=== PATIENT | female | born 1985 | race Caucasian/White ===

== ENCOUNTER 2016-08-27 09:16 | Day surgery (SDC) | payer OTHER ==
[2016-08-24 13:27] LABS: HEMATOCRIT 40.1 % (36.0-47.0); HEMOGLOBIN 13.4 g/dL (12.0-15.5); HGB HCT DIFFERENCE 0.1; MEAN CORPUSCULAR HEMOGLOBIN 28.9 pg (27.0-33.4); MEAN CORPUSCULAR HGB CONC 33.4 g/dL (32.0-36.0); MEAN CORPUSCULAR VOLUME 87 fl (80-97); RED BLOOD COUNT 4.63 10^6/uL (3.72-5.28); RED CELL DISTRIBUTION WIDTH 14.1 % (11.5-14.0); WHITE BLOOD COUNT 6.3 10^3/uL (4.0-10.5)
[2016-08-24 13:48] LABS: ALANINE AMINOTRANSFERASE 18 U/L (9-52); ALBUMIN 4.1 g/dL (3.5-5.0); ALKALINE PHOSPHATASE 54 U/L (38-126); ANION GAP 10 (5-19); ASPARTATE AMINO TRANSFERASE 17 U/L (14-36); BILIRUBIN,DIRECT 0.3 mg/dL (0.0-0.4); BILIRUBIN,TOTAL 0.5 mg/dL (0.2-1.3); BLOOD UREA NITROGEN 12 mg/dL (7-20); CALCIUM 9.5 mg/dL (8.4-10.2); CARBON DIOXIDE 25 mmol/L (22-30); CHLORIDE 105 mmol/L (98-107); GLUCOSE 45 mg/dL (75-110); POTASSIUM 4.2 mmol/L (3.6-5.0); TOTAL PROTEIN 7.5 g/dL (6.3-8.2)
[~2016-08-27 09:16] MED LIST: BUPIVACAINE HCL 0.25 % INJ/PF (2.5 MG/1 ML) 30 ML VIAL ONE; CEFAZOLIN 2 GM/D5W RTU 2 GM/50 ML RTUPB IV PRN; LIDOCAINE 0.5% INJ-PF (5 MG/ML) 50 ML SDV INJ PRN; RINGERS SOLUTION,LACTATED 1,000 ML IV PRN
[2016-08-27] MEDS ORDERED: FENTANYL CITRATE INJ/PF 100 MCG/2 ML AMPUL ONE ×3 (10:50→13:40)
[2016-08-27] MEDS ORDERED: HYDROMORPHONE HCL INJ/PF 2 MG/ML AMPULE ONE (10:50)
[2016-08-27] MEDS ORDERED: ACETAMINOPHEN 100 ML IV ONE (10:51)
[2016-08-27] MEDS ORDERED: PROPOFOL INJ 200 MG/20 ML VIAL IV ONE (10:51)
[2016-08-27] MEDS ORDERED: MIDAZOLAM 2 MG/2 ML INJ ONE (10:51)
[2016-08-27] MEDS ORDERED: DIPHENHYDRAMINE HCL 50 MG/ML VIAL IV PRN (12:39)
[2016-08-27] MEDS ORDERED: MEPERIDINE HCL/PF INJ 25 MG/1 ML DISP.SYRIN IV PRN (12:39)
[2016-08-27] MEDS ORDERED: FENTANYL CITRATE INJ/PF 100 MCG/2 ML AMPUL IV PRN ×3 (12:39)
[2016-08-27] MEDS ORDERED: MORPHINE SULFATE 10 MG/ML INJ IV PRN ×2 (12:39→13:29)
[2016-08-27] MEDS ORDERED: OXYCODONE-ACETAMINOPHEN 5-325 MG TABLET PO PRN (13:29)
[2016-08-27] MEDS ORDERED: ONDANSETRON HCL INJ/PF 4 MG/2 ML SDV IV PRN (13:30)
[2016-08-27] MEDS ORDERED: PROMETHAZINE HCL INJ 25 MG/1 ML VIAL IV PRN (13:31)
[2016-08-27] MEDS ORDERED: OXYCODONE HCL IR 5 MG TABLET PO PRN (13:39)
[2016-08-27] MEDS ORDERED: NORMAL SALINE 1000 ML 1,000 ML IV ONE (13:45)
--- NOTE | 2016-08-27 15:26 | OPERATIVE REPORT E ---
Operative Report NAME: LETHA FALCON : 1985 AGE: 30Y DATE OF SURGERY: 08/27/2016 ROOM: 219 PREOPERATIVE DIAGNOSES: 1. CHRONIC PELVIC PAIN. 2. ENDOMETRIOSIS. 3. MENOMETRORRHAGIA UNRESPONSIVE TO MEDICAL THERAPY. POSTOPERATIVE DIAGNOSES: 1. CHRONIC PELVIC PAIN. 2. ENDOMETRIOSIS. 3. MENOMETRORRHAGIA UNRESPONSIVE TO MEDICAL THERAPY. OPERATION: 1. Robotic total laparoscopic hysterectomy. 2. Bilateral salpingectomy with remnants of the fallopian tubes and bilateral tubal ligation. 3. Cystoscopy. SURGEON: Yanira Jones PLASTIC PARTS FABRICATOR TRIMMER: Christy Chaney MD ANESTHESIA: General. ESTIMATED BLOOD LOSS: 150. INTRAVENOUS FLUIDS: 1700. URINE OUTPUT: 200 clear urine at end of procedure. COMPLICATIONS: None. INDICATIONS: The patient is a 30-year-old G4, P3-0-1-3 with a history of bilateral tubal ligation and chronic pelvis pain with a history of endometriosis on previous diagnostic laparoscopy with soft boggy uterus consistent with adenomyosis based on a previous diagnostic laparoscopy report with menometrorrhagia unresponsive to medical therapy. The patient desired definitive treatment, counseling of robotic hysterectomy included but not limited to bleeding, infection, injury to surrounding organs or tissue and need of transfusion, possible exploratory laparotomy and in case there is bleeding that cannot be identified, visualized or controlled via the laparoscopic robotic procedure or due to many adhesions due to her previous surgical history. The patient understood and consented to procedure and agreed to proceed with operating room. FINDINGS: 1. Soft boggy uterus consistent with adenomyosis. 2. Remnants of the fallopian tube on the right and left tube. 3. Normal ovaries bilaterally. DESCRIPTION OF PROCEDURE: The patient was taken to the operating room and general anesthesia was induced without difficulty. She was placed on the dorsal lithotomy position and sterilely prepped and draped in the usual sterile fashion. Bear hugger was placed to maintain control of core body temperature. Luna catheter was placed on the bladder. Heavy weighted speculum was placed and vaginal tissue, vaginal vault. Single tooth tenaculum was placed on the anterior lip of the cervix. Cervical os was dilated with Hegar dilators. Hegar dilators were used to dilate the cervix. Two [id number]-[id number]-eslms stitches around 3 and 9 o'clock were placed with anchoring stitches prior to placing the V Care manipulator was attached to the uterus with a cervical ring and anchoring it into the stitches on the right and left. Weighted speculum was removed from the vaginal mucosa. A single tooth tenaculum was removed from the anterior lip of the cervix, and then the course of two sutures were placed on all lateral aspects of the cervix used as traction later in the case as needed along with the Vcare, and they were anchored with a horizontal supraumbilical incision that was performed with the scalpel. A Veress needle was placed in the abdominal cavity. Through the Veress needle, carbon dioxide was infused until pneumoperitoneum was obtained. This was of course done after a water drop test was successfully performed. Veress needle was then removed. Supraumbilical incision was then extended a little bit in a 12 mm trocar and sleeves were placed into the abdominal cavity under direct visualization with a laparoscope without any difficulty. Trocar removed and robotic laparoscope was placed in the abdominal cavity. Please see the above findings. The interperitoneum placement was confirmed. Local anesthesia was used at all ports prior to placing the surgiports. Two 8 mm surgiports were placed inferior to the umbilicus and lateral to the rectus abdominis muscle bilaterally. These ports were put in the abdominal cavity under direct visualization away from any major blood vessels. An community assistant port was placed in the right upper quadrant. The ureter on both sides on the right and the left were both visualized and both had excellent peristalsis and were well out of the visual surgical field at all times. At this point, the small fimbriated end of the fallopian tube was grasped on the right side, coagulated and transected along the mesosalpinx all the way to the cornua region. The round ligaments on the right side were cauterized and transected. The utero-ovarian ligament on the right side was cauterized and transected with a round ligament all the way down to the level of the uterus and uterine arteries of course prior to the hysterectomy and it being initiated. Again, the ureter was visualized and it was peristalsing and it was individual doe and away from the surgical process that was being performed. The contralateral side was performed in a similar fashion where the small fimbriated end was grasped all of the way through the mesosalpinx to the cornual region cauterizing and transect. The utero-ovarian cauterized and transected. The round ligament was cauterized and transected all the way down to the level of the uterus and the uterine arteries. Again, the ureter on the left side was visualized and was peristalsing perfectly and was far away from where we were cauterizing and transecting. The vesicouterine peritoneum on the right side was then incised in an elliptical fashion performing the right side of the bladder flap. The bladder was pushed down to the lower uterine segment without any difficulty. The ring was then identified anteriorly and anterior colpotomy was performed. The uterine vasculature was cauterized bilaterally. The colpotomy was extended completely circumscribing the cervix and the vaginal cuff. The uterus, both fallopian tubes and the cervix were delivered through the vaginal mucosa. The vaginal cuff was closed using running via lock suture 180 days. Attention was then turned to the ureters bilaterally and they were both identified again peristalsis and in a normal fashion and away from the vaginal cuff where we were performing the procedure. The survey of the lateral pelvic sidewalls revealed excellent hemostasis. Also survey of both lateral pelvic sidewalls revealed excellent hemostasis and both ureters were both peristalsing after the hysterectomy procedure that was done and the closure of the vaginal cuff. Fluorescein was injected along the vaginal cuff for prophylactic measures and hemostasis. Attention was then turned below to perform a cystoscopy prior to removing the robotic instrument. The cystoscope was introduced without any difficulty and the scope of the bladder revealed completely normal integrity and anatomy of the bladder. There were no foreign bodies or injury to the bladder and there was the bubble sign visible. There was excellent efflux from both ureteral orifices of strong urine flow efflux identified. There was no methylene blue that was given at this procedure due to back order of methylene blue; however, both yellow urine from both ureters were identified. At this point after confirming the normal findings of the cystoscope, the cystoscope was removed, robot was undocked, the abdomen was desufflated and all trocars were removed. A 12 mm supraumbilical incision was repaired with a UR6 to repair the fascia and the remaining incision was closed with 4-0 Monocryl in a horizontal mattress fashion and in a running fashion for the supraumbilical and the right upper quadrant stitch with a 4-0 Monocryl continuously in a subcuticular fashion. All sponge, needle and instrument counts were noted to be correct x2. The patient did receive preoperative IV antibiotics of Ancef 2 g. Luna bag was noted to contain clear urine at end of procedure. Luna catheter was removed, the vaginal mucous was then inspected to make sure there were no lacerations and there was no bleeding or any lacerations from below. The patient was extubated successfully in the recovery room. The patient tolerated procedure well. Sponge, lap and needle counts were correct x2. The patient was sent to the recovery room in stable condition. The patient is to be discharged later today pending PACU requirements but the plan is to send the patient home with a followup outpatient for postoperative appointment. DICTATING PHYSICIAN: Yanira Jones MD [id number] PHY#: [id number] ID: [id number] JOB#: [id number] ACCT: [id number] cc:Yanira Jones >
[2016-08-27] MEDS ORDERED: GLYCOPYRROLATE INJ 0.4 MG/2 ML VIAL ONE (15:51)
[2016-08-27] MEDS ORDERED: NEOSTIGMINE METHYLSULFATE 10 MG/10 ML VIAL ONE (15:51)
[2016-08-27] MEDS ORDERED: SUCCINYLCHOLINE CHLORIDE INJ 200 MG/10 ML VIAL ONE (15:51)
[2016-08-27] MEDS ORDERED: ROCURONIUM BROMIDE INJ 50 MG/5 ML VIAL IV ONE (15:51)
[2016-08-27] MEDS ORDERED: DEXAMETHASONE SOD PHOSPHATE INJ 4 MG/1 ML VIAL ONE (15:51)
[2016-08-27] MEDS ORDERED: ONDANSETRON HCL INJ/PF 4 MG/2 ML SDV ONE (15:51)
[2016-08-27 20:07] VITALS: BP 108/66
== END 2016-08-27 20:26 | disposition home or self-care (01) ==
LOC: OROUT 09:16 → 2S 14:31 → OROUT 20:26
PROVIDERS: ATTEND Obstetrics & Gynecology
PROC: 0UTC4ZZ Resection of Cervix, Percutaneous Endoscopic Approach (ICD-10-PCS; 2016-08-27)
PROC: 0UT74ZZ Resection of Bilateral Fallopian Tubes, Percutaneous Endoscopic Approach (ICD-10-PCS; 2016-08-27)
PROC: 8E0W4CZ Robotic Assisted Procedure of Trunk Region, Percutaneous Endoscopic Approach (ICD-10-PCS; 2016-08-27)
PROC: 0UT94ZZ Resection of Uterus, Percutaneous Endoscopic Approach (ICD-10-PCS; principal; 2016-08-27 11:15)
DX: G89.29 Other chronic pain (principal); R10.2 Pelvic and perineal pain; N80.0 Endometriosis of uterus; N92.1 Excessive and frequent menstruation with irregular cycle
CPT/HCPCS: 58571; S2900; 36415; 80053; 81025; 840; 85027; 86850; 86900; 86901; 88307; J0131; J0330; J0690; J1100; J1170; J2250; J2270; J2405; J2704; J3010; J3490

== ENCOUNTER 2017-01-31 11:30 | Day surgery (SDC) | payer OTHER ==
[2017-01-24 10:51] LABS: ABSOLUTE MONOCYTES (AUTO) 0.5 10^3/uL (0.1-1.4); ABSOLUTE NEUT (AUTO) 2.2 10^3/uL (1.7-8.2); BASOPHILS % (AUTO) 0.3 % (0-2); HEMATOCRIT 40.6 % (36.0-47.0); HEMOGLOBIN 14.2 g/dL (12.0-15.5); LYMPHOCYTES % (AUTO) 40.8 % (13-45); MEAN CORPUSCULAR HEMOGLOBIN 30.2 pg (27.0-33.4); MEAN CORPUSCULAR HGB CONC 34.8 g/dL (32.0-36.0); MEAN CORPUSCULAR VOLUME 87 fl (80-97); MONOCYTES % (AUTO) 11.2 % (3-13); RED BLOOD COUNT 4.69 10^6/uL (3.72-5.28); RED CELL DISTRIBUTION WIDTH 13.2 % (11.5-14.0); SEGMENTED NEUTROPHILS % (AUTO) 46.7 % (42-78); WHITE BLOOD COUNT 4.8 10^3/uL (4.0-10.5)
[2017-01-24 10:55] LABS: APPEARANCE,URINE SLIGHTLY-CLOUDY; BILIRUBIN,URINE NEGATIVE (NEGATIVE); GLUCOSE, URINE NEGATIVE (NEGATIVE); KETONES,URINE NEGATIVE (NEGATIVE); LEUKOCYTE ESTERASE,URINE NEGATIVE (NEGATIVE); NITRITE,URINE NEGATIVE (NEGATIVE); PROTEIN,URINE 30 mg/dL (NEGATIVE)
[2017-01-24 11:12] LABS: ANION GAP 14 (5-19); BLOOD UREA NITROGEN 14 mg/dL (7-20); CALCIUM 9.2 mg/dL (8.4-10.2); CARBON DIOXIDE 25 mmol/L (22-30); CHLORIDE 105 mmol/L (98-107); CREATININE RESULT 0.82 mg/dL (0.52-1.25); GLUCOSE 84 mg/dL (75-110); POTASSIUM 4.1 mmol/L (3.6-5.0); SODIUM 144.2 mmol/L (137-145)
[~2017-01-31 11:30] MED LIST changes: -BUPIVACAINE HCL 0.25 % INJ/PF (2.5 MG/1 ML) 30 ML VIAL ONE; +BUPIVACAINE HCL 0.5 % INJ/PF 30 ML SDV ONE; +LACTATED RINGERS 1000 ML IV PRN; -LIDOCAINE 0.5% INJ-PF (5 MG/ML) 50 ML SDV INJ PRN; -RINGERS SOLUTION,LACTATED 1,000 ML IV PRN
[2017-01-31] MEDS ORDERED: FENTANYL CITRATE INJ/PF 100 MCG/2 ML AMPUL ONE (14:17)
[2017-01-31] MEDS ORDERED: HYDROMORPHONE HCL INJ/PF 2 MG/ML AMPULE ONE (14:17)
[2017-01-31] MEDS ORDERED: PROPOFOL INJ 200 MG/20 ML VIAL IV ONE (14:18)
[2017-01-31] MEDS ORDERED: MIDAZOLAM 2 MG/2 ML INJ ONE (14:18)
[2017-01-31] MEDS ORDERED: ONDANSETRON HCL INJ/PF 4 MG/2 ML SDV ONE (14:52)
[2017-01-31] MEDS ORDERED: DEXAMETHASONE SOD PHOSPHATE INJ 4 MG/1 ML VIAL ONE (14:52)
--- NOTE | 2017-01-31 15:34 | Operative Report ---
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 A thigh tourniquet was applied to the right lower extremity and the right lower extremity was prepped and draped in a normal sterile surgical fashion. Timeout was done identifying the right knee as the correct site. Esmarch was used to examine correct extremity and tourniquet was inflated at 300 mmHg. Marcaine was injected in the 2 anticipated portal sites. 11 blade was used to establish the anterolateral portal and the scope was introduced. Fluid was used to distend the capsule. Under direct visualization we proceeded to establish the anteromedial portal and introduced a probe showing that the patient had central and medial facet grade 4 and grade 3 changes of the patella. Diameter was about a centimeter. Patient had a single small plica and with the 4.0 mm shaver was able to resect the plica and do a chondroplasty of the patella. Pictures were taken of the pre -and and after images. I have did a mild resection of the fat pad for better exposure. Also looked at the medial compartment and lateral compartment showing pristine cartilage of the condyles and plateau as well as an intact menisci. Looking at the notch patient had intact ACL PCL. Once I was satisfied with my chondroplasty and medial plica excision and pictures confirming the resection and can clean up I then proceeded to remove the fluid from the knee and closed the 2 portal sites with 3-0 nylon. I injected the remaining Marcaine into the knee for pain control. I then applied Xeroform 4 x 4 dressing and then overwrapped with soft roll and Carlitos bandage. Tourniquet was let down at 28 minutes and drapes were removed. Patient was then extubated and sent to PACU in stable condition
[2017-01-31] MEDS ORDERED: OXYCODONE-ACETAMINOPHEN 5-325 MG TABLET PO PRN ×4 (15:36→16:07)
--- NOTE | 2017-01-31 15:36 | PDOC DISCHARGE SUMMARY ---
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 Patient instructed to keep dressing dry clean and intact for 4 days and then allowed to remove. At that point patient can shower and apply Band-Aids as needed. Patient can weight-bear as tolerated and do range of motion exercises as tolerated. Crutches for support and safety. Can wean crutches once stable on his feet. Patient instructed to call the office if patient develops fevers chills redness and drainage from the surgical sites. Prescriptions: Oxycodone HCl/Acetaminophen [Percocet 5-325 mg Tablet] 1 - 2 tab PO ASDIR PRN # 40 tablet PRN Reason: Referrals: KYLE PYLE PA [Primary Care Provider] - Discharge Diet: As Tolerated Respiratory Treatments at Home: Deep Breathing/Coughing Discharge Activity: No Driving, Keep Legs Elevated, No Lifting/Push/Pulling, Slowly Increase Activity Home Care Assistance: None Needed Adaptive Devices on Discharge: Axillary Crutches Report the Following to Your Physician Immediately: Shortness of Breath, Vomiting, Increase in Pain, Fever over 101 Degrees, Unusual Bleeding, Redness, Swelling, Warmth, Increased Soreness, Drainage-Yellow, Drainage-Fernandez, Drainage- Green, Drainage-Foul Smelling
[2017-01-31] MEDS ORDERED: DIPHENHYDRAMINE HCL 50 MG/ML VIAL IV PRN (16:07)
[2017-01-31] MEDS ORDERED: FENTANYL CITRATE INJ/PF 100 MCG/2 ML AMPUL IV PRN ×3 (16:07)
[2017-01-31] MEDS ORDERED: PROMETHAZINE HCL INJ 25 MG/1 ML VIAL IV PRN ×2 (16:07)
[2017-01-31] MEDS ORDERED: MEPERIDINE HCL/PF INJ 25 MG/1 ML DISP.SYRIN IV PRN (16:07)
[2017-01-31] MEDS ORDERED: MORPHINE SULFATE 10 MG/ML INJ IV PRN (16:07)
[2017-01-31 17:36] VITALS: BP 107/71
== END 2017-01-31 17:50 | disposition home or self-care (01) ==
LOC: OROUT 11:30
PROVIDERS: ATTEND Orthopaedic Surgery
PROC: 0SBC4ZZ Excision of Right Knee Joint, Percutaneous Endoscopic Approach (ICD-10-PCS; principal; 2017-01-31 13:30)
DX: M67.51 Plica syndrome, right knee (principal); M22.41 Chondromalacia patellae, right knee
CPT/HCPCS: 36415; 85025; 80048; 81001; 29875; J2250; J1100; J1170; J2405; J2704; J0690; 1400; J3010